=== PATIENT | male | born 1985 | race Caucasian/White ===

== ENCOUNTER 2022-06-16 21:39 | Emergency (ER) | payer OTHER ==
[~2022-06-16] VITALS: Ht 175.3 cm; Wt 99.8 kg
[2022-06-16 21:55] VITALS: BP_SYST 116
--- NOTE | 2022-06-16 22:05 | NUR ---
Patient to ER bed [place] to [facility] for evaluation. Side rails up. Report given to EILEEN BROUSSARD(REG).
--- NOTE | 2022-06-16 22:25 | NUR ---
MD White at bedside examining pt.
[2022-06-16] MEDS ORDERED: KETOROLAC TROMETHAMINE 60 MG/2 ML VIAL IM ONE (22:30)
[2022-06-16] MEDS: LORazepam 1 MG TABLET PO ONE ×2 (22:34→22:50)
--- NOTE | 2022-06-16 22:51 | NUR ---
PT MEDICATED ORDERED; ATIVAN PO HELD DUE TO PT CONDITION. PT IN/OUT OF SLEEP AND SLOW TO RESPOND. HOWEVER VSS AT THIS TIME. APPEARS IN NO ACUTE DISTRESS.
[2022-06-16 23:17] LABS: BASOPHILS % (AUTO) 0.6 % (0.0-2.0); EOSINOPHILS # (AUTO) 0.1 K/uL (0.0-0.4); EOSINOPHILS % (AUTO) 1.6 % (0.0-4.0); HEMATOCRIT 42.1 % (36-54); HEMOGLOBIN 14.1 g/dL (14.0-18.0); LYMPHOCYTES % (AUTO) 23.2 % (20.5-51.5); MEAN CORPUSCULAR HEMOGLOBIN 28 pg (27-31); MEAN CORPUSCULAR HGB CONC 34 % (32-36); MEAN CORPUSCULAR VOLUME 84 fL (79.0-98.0); MONOCYTES # (AUTO) 0.5 K/uL (0.0-1.0); MONOCYTES % (AUTO) 5.7 % (1.7-9.3); NEUTROPHILS # (AUTO) 5.9 K/uL (1.8-7.7); NEUTROPHILS % (AUTO) 68.9 % (40.0-70.0); PLATELET COUNT (AUTO) 222 K/uL (130-430); RED BLOOD CELL COUNT(AUTO) 5.04 MIL/uL (4.2-6.2); RED CELL DISTRIBUTION WIDTH 13.4 % (9.0-15.0); WHITE BLOOD COUNT (AUTO) 8.5 K/uL (4.8-10.8)
[2022-06-16 23:26] LABS: CALCIUM 8.5 mg/dL (8.4-11.0); CREATININE 0.62 mg/dL (0.55-1.30)
--- NOTE | 2022-06-16 23:30 | NUR ---
PT SLEEPING COMFORTABLY ON GURNEY; EASY TO AROUSE. APPEARS IN NO ACUTE DISTRESS. VSS.
[2022-06-16 23:31] LABS: ALBUMIN 4.1 g/dL (3.4-4.8); TOTAL BILIRUBIN 0.4 mg/dL (0.0-1.0)
--- NOTE | 2022-06-17 00:03 | NUR ---
Patient given written and verbal discharge instructions and verbalizes understanding. ER MD White discussed with patient the results and treatment provided. Patient in stable condition. ID arm band removed. Pain Scale 0/10. Opportunity for questions provided and answered.
[2022-06-17 00:05] VITALS: BP_SYST 120
== END 2022-06-17 00:05 | disposition home or self-care (01) ==
LOC: SED 21:39
DX: R07.9 Chest pain, unspecified (principal); F10.129 Alcohol abuse with intoxication, unspecified; Z79.899 Other long term (current) drug therapy; Y90.6 Blood alcohol level of 120-199 mg/100 ml
CPT/HCPCS: 99285; 71045; 80053; 85025; 36415; 93005; 96372; G0482; J1885